=== PATIENT | male | born 1995 | race Hispanic/Latino ===

== ENCOUNTER 2021-11-20 10:38 | Emergency (ER) | payer OTHER ==
--- NOTE | 2021-11-20 12:11 | Emergency Department Report ---
ED Upper Extremity Inj HPI - General Chief Complaint: Extremity Injury, Upper Stated Complaint: PINKIE FINGER PAIN Time Seen by Provider: 11/20/21 12:03 Source: patient Mode of arrival: Ambulatory Limitations: No Limitations - History of Present Illness Initial Comments: Patient presents secondary to right little finger pain. He is left-hand dominant. Last night, he fell landing on his right hand. He is not really sure what happened to his little finger. It has been sore today. He came in for evaluation and treatment due to the pain. Pain is constant and aching. It is worse with movement of the right little finger. He does not have hand pain. He denies numbness or tingling in the extremity. He has not taken anything for pain. - Related Data Allergies Allergy/AdvReac Type Severity Reaction Status Date / Time No Known Allergies Allergy Unverified 11/20/21 11:52 ED Review of Systems ROS: Stated complaint: PINKIE FINGER PAIN Other details as noted in HPI Comment: All other systems reviewed and negative Constitutional: denies: fever Eyes: denies: eye pain ENT: denies: ear pain Respiratory: denies: cough Cardiovascular: denies: chest pain Gastrointestinal: denies: abdominal pain Genitourinary: denies: hematuria Musculoskeletal: denies: back pain Neurological: denies: headache Hematological/Lymphatic: denies: easy bruising ED Past Medical Hx - Past Medical History Previous Medical History?: No - Family History Family history: no significant ED Physical Exam - General Limitations: No Limitations, Other (Pulse ox noted and normal) General appearance: alert, in no apparent distress - Head Head exam: Present: atraumatic, normocephalic - Eye Eye exam: Present: normal appearance, EOMI - ENT ENT exam: Present: normal external ear exam - Neck Neck exam: Present: normal inspection - Respiratory Respiratory exam: Absent: respiratory distress - Cardiovascular Cardiovascular Exam: Absent: JVD - Extremities Exam Extremities exam: Present: other (Tenderness with bruising over the right little finger. This is at the PIP area primarily. Cap refill is brisk. Sensation is intact.) - Back Exam Back exam: Present: full ROM - Neurological Exam Neurological exam: Present: alert, oriented X3, normal gait. Absent: motor sensory deficit - Psychiatric Psychiatric exam: Present: normal affect, normal mood - Skin Skin exam: Present: warm, dry ED Course Vital Signs 11/20/21 11:54 Temperature 98.7 F Pulse Rate 74 Respiratory 18 Rate Blood Pressure 120/81 [Right] O2 Sat by Pulse 97 Oximetry - Reevaluation(s) Reevaluation #1: 11/20/21 12:10 X-rays were ordered. Reevaluation #2: 11/20/21 13:07 X-rays were noted ED Medical Decision Making - Radiology Data Radiology results: report reviewed - Medical Decision Making Patient presented with right little finger pain after fall. Radiographically, there was no fracture or dislocation noted. Patient had no evidence of infectious pathology. It was felt that he certainly could have sprained or contused his finger. He has bruising. He was treated symptomatically and referred for outpatient evaluation. Critical Care Time: No Critical care attestation.: If time is entered above; I have spent that time in minutes in the direct care of this critically ill patient, excluding procedure time. ED Disposition Clinical Impression: Fall Qualifiers: Encounter type: initial encounter Qualified Code(s): W19.XXXA - Unspecified fall, initial encounter Finger contusion Qualifiers: Encounter type: initial encounter Finger: little finger Damage to nail status: without damage Laterality: right Qualified Code(s): S60.051A - Contusion of right little finger without damage to nail, initial encounter Disposition: 01 HOME / SELF CARE / HOMELESS Is pt being admited?: No Condition: Stable Instructions: Contusion, [id number], How to Use Cold Therapy Additional Instructions: Ice and elevate. Return for problems. Follow-up with your regular doctor or the family doctor for recheck. Referrals: PRIMARY [facility] [Referring] - 3-5 Days ROBBIN DANGELO MD [Staff Physician] - 3-5 Days
--- NOTE | 2021-11-20 12:51 | XRay Report ---
RIGHT FINGER(S) 3 VIEW(S) INDICATION / CLINICAL INFORMATION: rlf injury from fall COMPARISON: None available. FINDINGS: BONES / JOINT(S): No acute fracture or subluxation. No significant arthritis. SOFT TISSUES: No significant abnormality. ADDITIONAL FINDINGS: None. Signer Name: Tano Terrell DO Signed: 11/20/2021 12:45 PM Workstation Name: [id number]
[2021-11-20 13:14] VITALS: BP 118/78
== END 2021-11-20 13:30 | disposition home or self-care (01) ==
LOC: ED 10:38
DX: S60.051A Contusion of right little finger without damage to nail, initial encounter (principal); W19.XXXA Unspecified fall, initial encounter; Y93.89 Activity, other specified; Y92.89 Other specified places as the place of occurrence of the external cause; Y99.8 Other external cause status
CPT/HCPCS: 99283